=== PATIENT | male | born 1955 | race Caucasian/White ===

== ENCOUNTER 2019-05-24 12:27 | Emergency (ER) | payer MEDICAID ==
[~2019-05-24] VITALS: Ht 190.5 cm; Wt 90.7 kg
--- NOTE | 2019-05-24 13:01 | NUR ---
PATIENT WAS SEEN BY . ELVIA IN PROCESS.....
--- NOTE | 2019-05-24 14:13 | NUR ---
DR KIMLBE IN ROOM SPEAKING TO PATIENT AND FAMILY ABOUT TEST RESUTS AND PLAN OF CARE
--- NOTE | 2019-05-24 14:14 | NUR ---
DC, RX AND FOLLOW UP INSTRUCTIONS GIVEN AND EXPLAINED TO PATIENT AND FAMILY WHO STATE THEY UNDERSTAND ALL INSTRUCTIONS. COPY OF XRAY ON DISC GIVEN.
== END 2019-05-24 14:28 | disposition home or self-care (01) ==
LOC: ER 12:27
DX: S49.92XA Unspecified injury of left shoulder and upper arm, initial encounter (principal); Z79.899 Other long term (current) drug therapy; Z79.01 Long term (current) use of anticoagulants; W01.0XXA Fall on same level from slipping, tripping and stumbling without subsequent striking against object, initial encounter; Y93.89 Activity, other specified; Y92.89 Other specified places as the place of occurrence of the external cause; Y99.8 Other external cause status
CPT/HCPCS: 73030; 73060; A4663